=== PATIENT | male | born 1970 | race Caucasian/White ===

== ENCOUNTER 2024-04-13 09:12 | Emergency (ER) | payer BC, OTHER, SELFPAY ==
[2024-04-13] VITALS (12 sets, daily range): BP systolic 126–177; BP diastolic 80–104; PULSE 65–98; RESP 12–18; TEMP 36.6; O2SAT 96–99; BMI 34.4
--- NOTE | 2024-04-13 10:10 | CRLHL7_ITS ---
For Patients: As a result of the Century Cures Act, medical imaging exams and procedure reports are released immediately into your electronic medical record. You may view this report before your referring provider. If you have questions, please contact your health care provider. Indication: chest pain Technique: PA and lateral views of the chest. Comparison: None. Findings: Low lung volumes. Normal cardiomediastinal silhouette. No focal consolidation, pleural effusions, or visualized pneumothorax. Moderate degenerative changes of the visualized spine. Impression: No acute cardiopulmonary disease. Dictated by Major Malone MD @ 04/13/2024 11:08:17 AM (Electronically Signed)
--- NOTE | 2024-04-13 10:11 | ED.CHESTPAIN ---
HPI - Chest Pain General Date Seen: 04/13/24 Chief Complaint: Chest Pain Stated Complaint: left side chest pain Time Seen by Provider: 04/13/24 10:00 Source: patient and family Mode of arrival: ambulatory Limitations: no limitations History of Present Illness HPI narrative: Patient is a 53-year-old gentleman who presents here with chest pain for the last 3 hours or so. Describes his pain currently is approximately 2/10. 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 Does not worsen when he moves around presses on the area, I takes a deep breath in or other issues. He scribe's at more as a pressure in her really not a lot of pain with this. He did have some chest pain approximately week ago while he was working lasted for approximately 5-10 minutes and then resolve with a little bit of pressure. No previous history of any cardiac issues. Denies a family history of cardiac issues such as stents, there is a history of pacemaker insertion some elderly family members. He has no idea what his cholesterol is, never been checked for diabetes, nonsmoker, no user of alcohol or drugs. Here with his , No recent travel history, for long trips, denies any leg swelling or pain. No history of PEs DVTs or other issues, no history of Marfan syndrome or other issues. History of total hip arthroplasty in the remote past. MD complaint: chest pain Onset (ago): hour(s) Prior episodes: Yes Onset: during rest Pain location: substernal Pain radiation: none Severity: mild Quality: heaviness and dull Relieving factors: nothing Exacerbating factors: nothing Treatment prior to arrival: none Risk Factors Coronary artery disease risk factors: none Thoracic aortic dissection risk factors: none Related Data Home Medications ?Medication ?Instructions ?Recorded ?Confirmed No Known Home Medications 04/13/24 04/13/24 Allergies Allergy/AdvReac Type Severity Reaction Status Date / Time No Known Drug Allergies Allergy Verified 04/13/24 09:34 Review of Systems Status of ROS Reports: 10 or more systems reviewed and unremarkable except as noted in History and below PFSH PFSH Social History Smoking Status: Never smoker How often do you have a drink containing alcohol: never AUDIT-C Alcohol total score: 0 Non-prescribed substance use: denies use Exam Narrative Exam Narrative: Patient is seen in room 3 he is in no apparent distress, pleasant alert, nontoxic, speaking to me normally, BMI is elevated. He pupils are equal round reactive to light there is no scleral icterus redness is TMs bilaterally are normal his oropharynx is normal, JVP is flat, not elevated, carotid upstrokes are equal bilaterally and his cranial nerves 3-12 are grossly normal. Chest is good air entry bilaterally no wheezing crackles noted, there is no splinting, no palpable pain on his chest on palpation, heart sounds no clicks murmurs or gallops, no rubs, his abdomen is soft and protuberant, no guarding no organomegaly, bowel sounds are normal no pulsatile aortic masses no bruits, negative Cabello sign, back is nontender to palpation, both lumbar and thoracic, his lower extremities are normal with no swelling pitting edema, or tenderness noted. And pulses are normal neurologically moves his upper lower extremities normal. Const Vital Signs, click to edit/add: Vital Signs - 24 hr 04/13/24 09:19 04/13/24 09:35 04/13/24 11:32 Temperature 97.9 F Pulse Rate 69 Pulse Rate [Right Pulse Oximeter] 76 Respiratory Rate 18 14 Blood Pressure 141/87 H Blood Pressure [Left Upper Arm] 142/80 H Pulse Oximetry 98 99 99 Oxygen Delivery Method Room Air 04/13/24 12:03 04/13/24 12:32 04/13/24 13:32 Temperature Pulse Rate 70 70 65 Pulse Rate [Right Pulse Oximeter] Respiratory Rate 12 16 14 Blood Pressure 129/85 126/80 145/88 H Blood Pressure [Left Upper Arm] Pulse Oximetry 99 99 98 Oxygen Delivery Method 04/13/24 14:02 04/13/24 14:33 04/13/24 15:02 Temperature Pulse Rate 69 69 69 Pulse Rate [Right Pulse Oximeter] Respiratory Rate 16 12 14 Blood Pressure 131/86 172/96 H 164/104 H Blood Pressure [Left Upper Arm] Pulse Oximetry 96 98 96 Oxygen Delivery Method Documenting provider has reviewed patient's vital signs: yes Course Reevaluation(s) Time of Reevaluation #1: 13:48 Reevaluation #1: Patient feels better with basically no pain at all, the nitroglycerin did help him. His tropes x2 is negative, I did because it went down to 0 with a point of care repeat the lab trope but which was 0. I discussed with them doing a stress test were able to do a stress test out of the ER. Because of his chest pain. Which I think is reasonable. Time of Reevaluation #2: 16:05 Reevaluation #2: Patient did well with the stress test, no chest pain, subjectively and objectively negative, preliminary read by myself in the tent, show no acute wall motion abnormalities, at this point we will be able to discharge him home, with negative enzymes, and negative other testing. Vital Signs Vital signs: Initial Vital Signs Temperature 97.9 F 04/13/24 09:19 Temperature Source Oral 04/13/24 09:19 Pulse Rate 76 04/13/24 09:19 Pulse Rhythm Regular 04/13/24 09:19 Respiratory Rate 18 04/13/24 09:19 Blood Pressure 142/80 H 04/13/24 09:19 Blood Pressure Mean 100 04/13/24 09:19 Blood Pressure Position Sitting 04/13/24 09:19 Pulse Oximetry 98 04/13/24 09:19 Oxygen Delivery Method Room Air 04/13/24 09:19 Vital Signs Temperature 97.9 F 04/13/24 09:19 Pulse Rate 76 04/13/24 09:19 Respiratory Rate 18 04/13/24 09:19 Blood Pressure 142/80 H 04/13/24 09:19 Pulse Oximetry 98 04/13/24 09:19 Oxygen Delivery Method Room Air 04/13/24 09:19 Temperature 97.9 F 04/13/24 09:19 Pulse Rate 69 04/13/24 15:02 Respiratory Rate 14 04/13/24 15:02 Blood Pressure 164/104 H 04/13/24 15:02 Pulse Oximetry 96 04/13/24 15:02 Oxygen Delivery Method Room Air 04/13/24 09:19 Medications Administered Medications: Discontinued Medications Generic Name Dose Route Start Last Admin Trade Name Adonis PRN Reason Stop Dose Admin Acetaminophen 1,000 mg 04/13/24 11:54 04/13/24 12:00 Acetaminophen 500 Mg Tablet PO 04/13/24 11:55 1,000 mg ONCE ONE Administration Aspirin 324 mg 04/13/24 10:09 04/13/24 10:30 Aspirin 81 Mg Tab.Chew PO 04/13/24 10:10 324 mg ONCE ONE Administration Sodium Chloride 1,000 mls @ 1,000 mls/hr 04/13/24 10:15 04/13/24 11:35 0.9 % Sodium Chloride 1000 Ml IV 04/13/24 11:14 Infused .Q1H LINDA Infusion Nitroglycerin 0.4 mg 04/13/24 11:31 04/13/24 11:41 Nitroglycerin 0.4 Mg Tab.Subl SUBLINGUAL 04/13/24 11:32 0.4 mg ONCE ONE Administration Nitroglycerin 0.4 mg 04/13/24 11:54 04/13/24 12:05 Nitroglycerin 0.4 Mg Tab.Subl SUBLINGUAL 04/13/24 11:55 Not Given ONCE ONE MDM - Chest Pain MDM Narrative Medical decision making narrative: During the evaluation of this patient I considered multiple differential diagnosis is. The life-threatening differential diagnosis include coronary disease/AK, pulmonary embolism, pneumothorax, pneumonia, and aortic dissection. Other differential diagnosis included but were not limited to pericarditis, myocarditis, chest wall pain, GERD, esophageal rupture, rib fracture contusion, pleurisy, as well as other etiologies. Medical Records Data Attestation: I reviewed the patient's medical records. Lab Data Attestation: I reviewed the patient's lab results. Labs: Lab Results 04/13/24 04/13/24 04/13/24 Range/Units 10:25 10:33 10:44 WBC 4.99 (4.50-11.00) K/uL RBC 4.50 (4.30-5.90) m/uL Hgb 13.8 (13.5-17.5) gm/dL Hct 41.9 (37.0-53.0) % MCV 93 (80-100) fL MCH 31 (26-34) pg MCHC 33 (32-36) gm/dL RDW Coeff of Mery 13.3 (11.5-15.5) % Plt Count 168 (140-440) K/uL Neut % (Auto) 70.6 (42.0-72.0) % Lymph % (Auto) 19.4 L (20-44) % [place] % (Auto) 8.4 (0.0-11.0) % Eos % (Auto) 1.2 (0.0-7.0) % Baso % (Auto) 0.4 (0.0-3.0) % Neut # (Auto) 3.52 (1.7-7.0) K/uL Lymph # (Auto) 1.00 (0.90-2.90) K/uL [place] # (Auto) 0.40 (0.00-0.90) K/UL Eos # (Auto) 0.06 (0.00-0.50) K/uL Baso # (Auto) 0.02 (0.00-0.30) K/uL Abs Immat Gran (auto) 0.00 (0.00-0.30) K/uL Imm/Tot Granulo (auto) 0.0 % INR 0.90 L (0.91-1.10) APTT 18 L (23-33) Seconds D-Dimer Quant (PE/DVT) 0.43 (0.00-0.50) ug/ml Sodium 138 (135-149) mmol/L Potassium 4.5 (3.6-5.1) mmol/L Chloride 106 (96-114) mmol/L Carbon Dioxide 27 (20-32) mmol/L Anion Gap 5 L (7-15) mEq/L BUN 12 (7-30) mg/dL Creatinine 1.0 (0.5-1.5) mg/dL Estimated Creat Clear 86.18 Estimated GFR 89 ml/min Glucose 114 (60-115) mg/dL Calcium 9.0 (8.4-10.6) mg/dL Total Bilirubin 0.5 (0.1-1.5) mg/dL Direct Bilirubin 0.2 (0.0-0.5) mg/dL AST 24 (12-35) U/L ALT 34 (4-50) U/L Alkaline Phosphatase 92 (40-150) U/L Troponin I (0.01-0.04) ng/mL Total Protein 7.1 (6.0-8.3) g/dL Albumin 4.5 (3.3-5.0) g/dL POC Troponin I 0.06 H (0.01-0.04) ng/ml 04/13/24 04/13/24 Range/Units 12:36 13:05 WBC (4.50-11.00) K/uL RBC (4.30-5.90) m/uL Hgb (13.5-17.5) gm/dL Hct (37.0-53.0) % MCV (80-100) fL MCH (26-34) pg MCHC (32-36) gm/dL RDW Coeff of Mery (11.5-15.5) % Plt Count (140-440) K/uL Neut % (Auto) (42.0-72.0) % Lymph % (Auto) (20-44) % [place] % (Auto) (0.0-11.0) % Eos % (Auto) (0.0-7.0) % Baso % (Auto) (0.0-3.0) % Neut # (Auto) (1.7-7.0) K/uL Lymph # (Auto) (0.90-2.90) K/uL [place] # (Auto) (0.00-0.90) K/UL Eos # (Auto) (0.00-0.50) K/uL Baso # (Auto) (0.00-0.30) K/uL Abs Immat Gran (auto) (0.00-0.30) K/uL Imm/Tot Granulo (auto) % INR (0.91-1.10) APTT (23-33) Seconds D-Dimer Quant (PE/DVT) (0.00-0.50) ug/ml Sodium (135-149) mmol/L Potassium (3.6-5.1) mmol/L Chloride (96-114) mmol/L Carbon Dioxide (20-32) mmol/L Anion Gap (7-15) mEq/L BUN (7-30) mg/dL Creatinine (0.5-1.5) mg/dL Estimated Creat Clear Estimated GFR ml/min Glucose (60-115) mg/dL Calcium (8.4-10.6) mg/dL Total Bilirubin (0.1-1.5) mg/dL Direct Bilirubin (0.0-0.5) mg/dL AST (12-35) U/L ALT (4-50) U/L Alkaline Phosphatase (40-150) U/L Troponin I < 0.01 L (0.01-0.04) ng/mL Total Protein (6.0-8.3) g/dL Albumin (3.3-5.0) g/dL POC Troponin I 0.00 L (0.01-0.04) ng/ml Imaging Data Chest x-ray: Attestation: I have reviewed the pertinent imaging results. My impression: Negative chest x-ray Radiologist's impression: Patient: LINDA BLANCHARD Facility:?[facility] Patient ID:?[id number] Site Patient ID:?[id number]. Site :?[id number] Study:?XRay-Chest 2 VIEW-04/13/2024 11:00:02 AM Ordering Physician:Dahiana Velarde Final Report: Indication: chest pain Technique: PA and lateral views of the chest. Comparison: None. Findings: Low lung volumes. Normal cardiomediastinal silhouette. No focal consolidation, pleural effusions, or visualized pneumothorax. Moderate degenerative changes of the visualized spine. Impression: No acute cardiopulmonary disease. Dictated by Major Malone MD @ 04/13/2024 11:08:17 AM (Electronic Signature) ECG Data Attestation: I personally reviewed and interpreted this ECG as follows: ECG interpretation date: 04/13/24 Prior ECG tracings: not available for review Interpretation: EKG shows normal sinus rhythm with a ventricular rate of 76, occasional PVCs are noted, no evidence of any acute ST wave changes. Follow-up EKG shows no acute changes, Discharge Plan Discharge Clinical Impression: Chest pain Patient Disposition: Home w/ Parent or Adult Condition: Stable Instructions: Chest Pain (DC) Additional Instructions: Follow up appointment is scheduled at the [facility] on 04/15 with a 10am appointment time. Please arrive at 9:50am to check in and complete paperwork. If you have any questions or need to reschedule, please call [phone]. [facility] [address] [place] [address] Follow-up appoint with the above doctor for you. Please take omeprazole 20 mg a day, the stress test, and remainder testing was normal, this does not 100% rule out this being cardiac in nature but is really good test. Increasing chest pain shortness of breath or other issues I would recommend the come back to be seen. Activity Level: Light activity Prescriptions: No Action No Known Home Medications Follow Up/Referrals: Provider,Not a Local [Primary Care Provider] - Stand Alone Forms: [employer] Info Instructions
[2024-04-13] MEDS: ASPIRIN 81 MG TAB.CHEW 324 MG PO (10:30)
[2024-04-13] MEDS: 0.9 % SODIUM CHLORIDE 1000 ml 1,000 ML IV (10:35)
[2024-04-13 10:51] LABS: Basophils Absolute Auto 0.02 K/uL (0.00-0.30); Basophils Percent Auto 0.4 % (0.0-3.0); Eosinophils Absolute Auto 0.06 K/uL (0.00-0.50); Eosinophils Percent Auto 1.2 % (0.0-7.0); Hematocrit 41.9 % (37.0-53.0); Hemoglobin* 13.8 gm/dL (13.5-17.5); Lymphocytes Percent Auto 19.4 % (20-44); Mean Corpuscular HGB Conc 33 gm/dL (32-36); Mean Corpuscular Hemoglobin 31 pg (26-34); Mean Corpuscular Volume 93 fL (80-100); Monocytes Percent Auto 8.4 % (0.0-11.0); Neutrophils Absolute Auto 3.52 K/uL (1.7-7.0); Neutrophils Percent Auto 70.6 % (42.0-72.0); Platelet Count* 168 K/uL (140-440); RDW Coefficient of Variation % 13.3 % (11.5-15.5); White Blood Count* 4.99 K/uL (4.50-11.00)
[2024-04-13 10:51] LABS: Prothrombin Time 12.6 Seconds
[2024-04-13 10:55] LABS: D Dimer Quantitative* 0.43 ug/ml (0.00-0.50)
[2024-04-13 10:56] LABS: Slide Review Reflex No
[2024-04-13 10:57] LABS: Troponin, Point-of-Care* 0.06 ng/ml (0.01-0.04)
[2024-04-13 11:11] LABS: Albumin* 4.5 g/dL (3.3-5.0); Chloride* 106 mmol/L (96-114); Potassium* 4.5 mmol/L (3.6-5.1); Sodium* 138 mmol/L (135-149)
[2024-04-13 11:13] LABS: Est. Creatinine Clearance* 86.18; Estimated Glomerular Filt Rate 89 ml/min
[2024-04-13 11:14] LABS: Alanine Aminotransferase* 34 U/L (4-50); Alkaline Phosphatase* 92 U/L (40-150); Anion Gap 5 mEq/L (7-15); Aspartate Amino Transferase* 24 U/L (12-35); Bilirubin Direct* 0.2 mg/dL (0.0-0.5); Bilirubin Total* 0.5 mg/dL (0.1-1.5); Blood Urea Nitrogen* 12 mg/dL (7-30); Carbon Dioxide* 27 mmol/L (20-32); Glucose* 114 mg/dL (60-115); Total Protein* 7.1 g/dL (6.0-8.3)
[2024-04-13 11:22] LABS: Partial Thromboplastin Time* 18 Seconds (23-33)
[2024-04-13] MEDS: NITROGLYCERIN 0.4 MG TAB.SUBL SUBLINGUAL (11:41)
[2024-04-13] MEDS: ACETAMINOPHEN 500 MG TABLET 1000 MG PO (12:00)
[2024-04-13 13:46] LABS: Troponin I* < 0.01 ng/mL (0.01-0.04)
--- NOTE | 2024-04-13 16:07 | W.PM.STED ---
Stress Test Note Date Date Seen: 04/13/24 Date of test: 04/13/24 Providers Referring provider: George Montgomery Primary care provider: George Montgomery Stress test physician: Syd Helm Stress Test Note Stress test ordered: Stress Echo Indication for test: Chest pain Stress test medicine: Definity Results discussion: Patient is a very nice 53-year-old gentleman who presents for the above test after discussion risks benefits side effects he would like to proceed, indication for test is chest pain. He preliminary EKG shows no ST wave elevation or depression or any other abnormality, troponins x2 are negative. Standard Mahendra protocol is employed. He exercised to 6 minutes and 42 seconds, achieved maximum heart rate. He did not have any symptoms, chest pain shortness of breath or any and anginal equivalent. Review of the tracing did not show any evidence of ST wave changes suggestive of ischemia. He recovered normally, preliminary review by myself and the tech did not show any acute wall abnormality. Impression: Negative electrographic portion of stress echo, subjectively and objectively negative, conditioning was felt to be moderate Follow up suggested: Follow-up appointment made with , I would recommend that he use omeprazole as he has had this in the past, and had problems with reflux. given that the enzymes EKG changes D-dimer and everything is negative, I do not think he needs to go on aspirin at this point, however he does develop further chest pain that he will need to follow up, he was comfortable with this plan.
[2024-04-13] MEDS: PERFLUTREN LIPID MICROSPHERES 2 ML VIAL IV (16:12)
== END 2024-04-13 16:31 | disposition home or self-care (01) ==
PROVIDERS: Emergency Provider Family Medicine
DX: R07.9 Chest pain, unspecified (principal)
CPT/HCPCS: 36415; 71046; 80048; 80076; 84484; 85025; 85379; 85610; 85730; 93005; 93016; 93325; 93351; 94761; 99284; 99285; A9270; J7030; Q9957

== ENCOUNTER 2024-04-15 10:22 | Outpatient (CLI) | payer BC, OTHER, SELFPAY | END 2024-04-15 10:23 | disposition home or self-care (01) | PROVIDERS: PCP Internal Medicine; Visit Provider Internal Medicine | DX: R07.9 Chest pain, unspecified (principal); Z13.220 Encounter for screening for lipoid disorders; Z12.5 Encounter for screening for malignant neoplasm of prostate | CPT/HCPCS: 80061; G0103 ==